=== PATIENT | male | born 1995 | race Caucasian/White ===

== ENCOUNTER 2020-08-26 14:13 | Emergency (ER) | payer BC, SELFPAY ==
[2020-08-26 14:32] VITALS: BP 150/76; PULSE 89; RESP 20; TEMP 37.4; O2SAT 100
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
== END 2020-08-26 15:11 | disposition home or self-care (01) ==
PROVIDERS: Emergency Provider Nurse Practitioner
DX: S02.5XXA Fracture of tooth (traumatic), initial encounter for closed fracture (principal); X58.XXXA Exposure to other specified factors, initial encounter
CPT/HCPCS: 99213; G0463